=== PATIENT | female | born 1990 | race Caucasian/White ===

== ENCOUNTER 2016-11-30 16:12 | Emergency (ER) | payer OTHER ==
[~2016-11-30] VITALS: Ht 154.9 cm; Wt 60.9 kg
[~2016-11-30 16:12] MED LIST: CEPH500C PO
[2016-11-30 16:33] VITALS: BP 130/89; PULSE 76; RESP 18; O2SAT 100
[2016-11-30 16:49] LABS: BASOPHILS % (AUTO) 0.4 % (0-3); EOSINOPHILS % (AUTO) 4.4 % (0-5); MONOCYTES % (AUTO) 5.8 % (4-12); Mean Corpuscular Hemoglobin 28.9 pg (27.0-35.0); Mean Corpuscular Volume 88.7 fL (81-100); NEUTROPHILS % (AUTO) 65.5 % (40-74); Platelet Count 255 bil/L (150-400)
[2016-11-30 16:59] LABS: Magnesium 2.1 mg/dL (1.6-2.6)
--- NOTE | 2016-11-30 17:58 | ED.REPORT ---
HPI-Abd Pain F Under 39 Date of Service Nov 30, 2016 ED Provider: Raymon Lee MD Vladimir is an otherwise healthy 26-year-old female presented with a chief complaint of abdominal pain. Patient states she woke from a nap today with intense pain in her left lower quadrant. Concerned about ectopic . Also complains of left-sided back pain, dysuria, nausea, chills, sweating. Denies vomiting, diarrhea, melena, hematochezia, vaginal bleeding/discharge, hematuria. Reports that her pain is ameliorated by lying perfectly still. Denies history of kidney stones. Nursing Notes Stated Complaint: ABD PAIN Chief Complaint: Female Abdominal Pain Nursing Notes Reviewed: Yes Allergies: Coded Allergies: No Known Allergies (Unverified , 12/14/15) Scheduled Cephalexin (Cephalexin) 500 Mg Capsule 500 MG PO TID Ondansetron ODT (Ondansetron ODT) 8 Mg Tab.rapdis 8 MG PO TID Tamsulosin ER (Tamsulosin ER) 0.4 Mg Cap.er.24h 0.4 MG PO DAILY Scheduled PRN Hydrocodone-Acetaminophen 5-325 mg (Hydrocodone-Acetaminophen 5-325 mg) 1 Each Tablet 1-2 TABLET PO QID PRN PRN For Pain General Time Seen by MD: 17:51 Chief Complaint Flank pain left Past Medical History Past Medical History 1st : miscarriage Past Surgical History smokes 1/2 ppd for 10 years No Alcohol Occasional Marijuana Work at [employer] Denies any PMH Had Cervical Biopsies - abnormal paps smears. Dr. Nixon? in [place]. Last biopsy 20 yrs old. Family History Various Lung and breast cancers run in the family Smoking History Current Every Day Smoker Social History Alcohol Use: Denies alcohol use Drug Use: THC Ambulatory Status Independent Review of Systems Review of Systems Note: Negative unless stated otherwise in history of present illness Physical Exam General: Well appearing, well developed, well nourished, no acute distress. Patient appears to be in pain, lying on the gurney. Head: Atraumatic, normocephalic. Eyes: No scleral icterus or injection. No discharge. Vision grossly intact. ENT: Voice clear, hearing grossly intact. Respiratory: Regular rate and rhythm. Breath sounds present, clear to auscultation and equal bilaterally. No respiratory distress. No increased work of breathing, speaks in complete sentences. Cardiovascular: Regular rate and rhythm, without murmur, gallop or rub. No pedal edema. Gastrointestinal: Abdomen flat and diffusely tender without guarding or rebound. Bowel sounds normoactive. Back: Normal to inspection, mild left CVA tenderness to percussion. Skin: Warm and dry. Neurological: Grossly nonfocal. Psychological: Alert and oriented. Speech appropriate, linear and logical. Behavior appropriate. Initial Vital Signs Vital Signs (First) Date Time Temp Pulse Resp B/P Pulse Ox O2 Delivery O2 Flow Rate FiO2 11/30/16 16:33 36.2 76 18 130/89 100 Room Air Normal Interpretation & Diagnostics Lab Results Interpretation Result Diagram: 11/30/16 1630 11/30/16 1630 Test 11/30/16 16:30 11/30/16 16:48 11/30/16 17:58 White Blood Count 11.3th/mm3 (3.8-10.1) Red Blood Count 4.70mil/mm3 (3.90-5.20) Hemoglobin 13.6g/dL (12.0-15.6) Hematocrit 41.7% (35.0-46.0) Mean Corpuscular Volume 88.7fL (81-100) Mean Corpuscular Hemoglobin 28.9pg (27.0-35.0) Mean Corpuscular Hemoglobin Concent 32.6% (32.0-37.0) Red Cell Distribution Width 14.5% (12.3-15.4) Platelet Count 255bil/L (150-400) Neutrophils (%) (Auto) 65.5% (40-74) Lymphocytes (%) (Auto) 23.8% (14-46) Monocytes (%) (Auto) 5.8% (4-12) Eosinophils (%) (Auto) 4.4% (0-5) Basophils (%) (Auto) 0.4% (0-3) Hold Purple Top Tube Received (Received) Hold Blue Top Tube Received (Received) Sodium Level 139mEq/L (134-144) Potassium Level 3.7mEq/L (3.5-5.2) Chloride Level 103mEq/L (97-108) Carbon Dioxide Level 25mmol/L (18-29) Blood Urea Nitrogen 10mg/dL (6-20) Creatinine 0.62mg/dL (0.57-1.00) Estimat Glomerular Filtration Rate 165mL/min (>59) Glucose Level 124mg/dL (60-99) Calcium Level 9.4mg/dL (8.5-10.1) Magnesium Level 2.1mg/dL (1.6-2.6) Total Bilirubin 0.3mg/dL (0.0-1.2) Aspartate Amino Transf (AST/SGOT) 17U/L (0-50) Alanine Aminotransferase (ALT/SGPT) 14U/L (0-32) Alkaline Phosphatase 93U/L (25-150) Total Protein 7.9g/dL (6.4-8.4) Albumin 4.5g/dL (3.4-5.0) Lipase 33U/L (13-60) Hold Red Top Tube Received (Received) Hold [place] Top Tube Received (Received) Hold Urine Received (Received) Urine Color Yellow (YELLOW) Urine Appearance Hazy (CLEAR,HAZY) Urine pH 6.5 (5.0-8.0) Urine Specific [place] 1.020 (1.003-1.035) Urine Protein Negativemg/dL (NEG,TRACE) Urine Glucose (UA) Negativemg/dL (NEGATIVE) Urine Ketones Negativemg/dL (NEGATIVE) Urine Occult Blood Large (NEGATIVE) Urine Nitrite Negative (NEGATIVE) Urine Bilirubin Negative (NEGATIVE) Urine Urobilinogen Normalmg/dL (NORMAL) Urine Leukocyte Esterase Negative (NEGATIVE) Urine RBC >50/hpf (0-2) Urine WBC 0-5/hpf (0-5) Urine Epithelial Cells Moderate/hpf (NONE-MOD) Urine Crystals None seen (NONE SEEN) Urine Bacteria Few/hpf (NONE-FEW) Urine Hyaline Casts None/lpf (NONE) Urine Granular Casts None seen (NONE SEEN) Urine Waxy Casts None seen (NONE SEEN) Urine Red Blood Cell Casts None seen (NONE SEEN) Urine White Blood Cell Casts None seen (NONE SEEN) Urine Mucus None seen (None Seen) Urine Trichomonas None seen (NONE SEEN) Urine Yeast None (NONE SEEN) Urinalysis Comment None Urine Culture Reflexed Not indicated CT Abd / Pelvis Interpretation PROCEDURE: CT KUB ([id number]) INDICATIONS: left flank pain IMPRESSION: 1. Obstructing 3 mm left UVJ calculus causing left-sided hydronephrosis and ureterectasis. 2. Bilateral L5 spondylolysis with grade 1 anterior spondylolisthesis. Interpretation / Wet Read by: Interpret - Radiologist Re-Eval/Medical Decision Med Decision/Clinical Course Was healthy 26-year-old female presents with a chief complaint of abdominal pain. Patient reports waking with lower left quadrant pain, developing into left flank pain through the day. Associated with dysuria, nausea, chills, sweating. Denies history of kidney stones. Physical examination reveals a patient who appears to be quite uncomfortable lying on the gurney. Mild left CVA tenderness to percussion. Diffusely tender abdomen without guarding or rebound. Urinalysis has no indication of infection , but significant blood. CBC reveals mild leukocytosis at 11.3, CMP is unremarkable. Discussed these findings with Dr. lee, who recommends CT KUB. This reveals a 3 mm obstructing stone at the left UVJ causing hydronephrosis. I am reassured there is no infection. Differential diagnosis included but was not limited to appendicitis, diverticulitis, pyelonephritis, ovarian cysts, ovarian torsion, PID. Patient is discharged to home with prescription for Flomax, ondansetron, [place] with precautions. Provided urology referral, urine screen. Provided emergent return precautions. Patient verbalizes understanding of and consent to the plan. Unfortunately, as I am reviewing this note I realized that I did not in fact prescribe Flomax as I intended to. This is called into the patient's pharmacy and the patient is contacted. 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 Discharge & Departure Primary Impression: Renal calculus, left Additional Impression: Hydronephrosis Hydronephrosis type: with ureteral calculous obstruction Qualified Code: N13.2 - Hydronephrosis with renal and ureteral calculous obstruction Disposition: Home Discharge Condition All VS Reviewed: Yes Condition: Stable Patient Instructions: Kidney Stones (ED) Additional Instructions: Evaluation for abdominal pain in the emergency department includes history, physical examination, urinalysis and CT scan which reveal a left-sided kidney stone which is the most likely cause of your pain. There is no indication of infection, I believe are stable and safe to go home. I will give you a urine strainer. Please use this every time you urinate to try to catch the stone. This will be helpful for determining why you got the stone. I also gave a referral for a urologist. Please contact them tomorrow to arrange to be seen in the near future. The pain is best treated with 600 mg of ibuprofen (Advil, Motrin) every 6 hours , or 1000 mg of acetaminophen (Tylenol) every 6 hours. These drugs can be taken at the same time for more severe pain. I have written a prescription for a small amount of hydrocodone/acetaminophen 5/ 325 mg which can be SUBSTITUTED for the Tylenol to treat more severe pain. Do not take them together, and do not drink alcohol or operate a vehicle within 4 hours of taking this medication. I will write you a prescription for ondansetron to help with nausea. Return to emergency department for any new or worsening symptoms including increasing pain, fever, vomiting. Referrals: Argelia Richardson MD EDSupervising Provider for APC: Raymon Lee MD copies to: Argelia Richardson MD, Seth PA-C Nov 30, 2016 17:58
[2016-11-30] MEDS ORDERED: Ondansetron 2 mg/mL 2 mL Inj ONE (18:12)
[2016-11-30] MEDS ORDERED: Ondansetron 2 mg/mL 2 mL Inj IVPUSH ONE (18:20)
[2016-11-30 18:28] LABS: APPEARANCE,URINE HAZY (CLEAR,HAZY); COLOR,URINE YELLOW (YELLOW); PH,URINE 6.5 (5.0-8.0)
[2016-11-30 18:29] LABS: OCCULT BLOOD,URINE LARGE (NEGATIVE); UROBILINOGEN,URINE NORMAL (NORMAL)
--- NOTE | 2016-11-30 19:05 | DRSVH ---
PROCEDURE: CT KUB ([id number]) INDICATIONS: left flank pain TECHNIQUE: Noncontrast 5 mm thick sections acquired from the diaphragms to the symphysis. 5 mm thick coronal an d sagittal reformats were then performed. For radiation dose reduction, the following was used: aut omated exposure control, adjustment of mA and/or kV according to patient size. COMPARISON: None. FINDINGS: Image quality: Excellent. Lung bases: Lung bases are clear. Heart size is normal. Urinary system: There is a 3 mm obstructing left UVJ calculus causing left-sided hydronephrosis and u reterectasis. Punctate nonobstructing left renal calculus. No right-sided renal or ureteral calculi. No right hydronephrosis. No noncontrast evidence of renal masses. Other solid organs: Liver and spleen are normal in size. Gallbladder is present. Pancreas is shanw l in contours. No adrenal nodules. Peritoneum and bowel: Unenhanced bowel loops demonstrate normal wall thickness and caliber. No free fluid or air. The appendix is not identified. There are no secondary signs of acute appendicitis. Nodes and vessels: No retroperitoneal or mesenteric adenopathy by size criteria. Aorta and inferior vena cava are normal in caliber. Abdominal wall: No ventral hernias. Pelvis: No free pelvic fluid. No inguinal hernias or adenopathy. Bones: No suspicious bony lesions. No vertebral body compression fractures. Bilateral L5 spondylol ysis with grade 1 anterior spondylolisthesis. IMPRESSION: 1. Obstructing 3 mm left UVJ calculus causing left-sided hydronephrosis and ureterectasis. 2. Bilateral L5 spondylolysis with grade 1 anterior spondylolisthesis. Dictated by: Blaine Maki M.D. on 11/30/2016 at 18:53 Approved by: Blaine Maki M.D. on 11/30/2016 at 18:58
[2016-11-30] MEDS ORDERED: HYDR-4003 PO (19:34)
[2016-11-30] MEDS ORDERED: ONDA8TAB10 PO (19:36)
[2016-11-30 19:55] VITALS: BP 101/67; PULSE 111; RESP 17; O2SAT 97
[2016-11-30 19:56] VITALS: BP 101/67; PULSE 111; RESP 17; O2SAT 97
[2016-11-30] MEDS ORDERED: TAMS0.4C29 PO (21:13)
== END 2016-11-30 19:57 | disposition home or self-care (01) ==
LOC: EDBD 16:12 → SED 16:12
DX: N13.2 Hydronephrosis with renal and ureteral calculous obstruction (principal); F17.200 Nicotine dependence, unspecified, uncomplicated; F12.10 Cannabis abuse, uncomplicated
CPT/HCPCS: 36415; 74176; 80053; 81000; 81025; 83690; 83735; 85025; 96374; 96375; 99285; J1885; J2405